=== PATIENT | male | born 1950 | race Caucasian/White ===

== ENCOUNTER 2017-06-02 16:58 | Emergency (ER) | payer SELFPAY ==
[~2017-06-02] VITALS: Ht 160 cm; Wt 88.0 kg
[2017-06-02 17:01] VITALS: Ht 160 cm; Wt 88.0 kg
== END 2017-06-02 20:03 | disposition left against medical advice (07) ==
LOC: FTE 16:58
DX: Z53.21 Procedure and treatment not carried out due to patient leaving prior to being seen by health care provider (principal)

== ENCOUNTER → 2017-06-02 | Outpatient (CLI) | payer BC ==
--- NOTE | 2017-06-02 16:38 | RADRPT ---
PROCEDURE: US Carotids. CLINICAL INDICATION: bruit , TIA TECHNIQUE: Multiple sonographic of the carotid bifurcation region and vertebral arteries were obta ined utilizing galvez scale, duplex and color-flow imaging. The images were reviewed on a PACS worksta tion. COMPARISON: No prior studies are available for comparison. FINDINGS: Evaluation of the right carotid bifurcation region reveals mild to moderate calcific atherosclerotic disease. Evaluation of the left carotid bifurcation region reveals severe calcific atherosclerotic disease. There is antegrade flow within the vertebral arteries bilaterally. RIGHT CAROTID MEASUREMENTS: Common Carotid [place]22.8 (cm/sec) Internal Carotid Artery - eicwrtlc41.5 (cm/sec) Internal Carotid Artery - mid70.1 (cm/sec) Internal Carotid Artery - lgejkx01.1 (cm/sec) Internal Carotid/Common Carotid1.18 LEFT CAROTID MEASUREMENTS: Common Carotid Llwnpt91.2 (cm/sec) Internal Carotid Artery - mifoeqri662 (cm/sec) Internal Carotid Artery - ruz297.3 (cm/sec) Internal Carotid Artery - zuvydy89.6 (cm/sec) Internal Carotid/Common Carotid8.58 RPTAT: AA IMPRESSION: High grade, greater than 70% stenosis in the left ICA - validated velocity measurements with angiogr aphic measurements, velocity criteria are extrapolated from diameter data as defined by the Society of Radiologists in Ultrasound Consensus Conference Radiology 2003; 229;340-346. This study does ind irectly reference the measurement of the distal ICA diameter as the denominator for stenosis measure ment. Normal antegrade flow in the vertebral arteries bilaterally. Further evaluation with a CT angiogram is recommended. A call report was made and a message left for Chris Davis (Kate) at 06/02/2017 4:37:54 PM. .Gabriel Spivey MD, MD Date Time Electronically viewed and signed by .Gabriel Spivey MD, MD on 06/02/2017 16:38 .S/
== END | disposition home or self-care (01) ==
LOC: U/S 15:37
PROVIDERS: ATTEND Specialist
DX: G45.9 Transient cerebral ischemic attack, unspecified (principal)
CPT/HCPCS: 93880

== ENCOUNTER → 2017-06-09 | Outpatient (CLI) | payer BC ==
[~2017-06-09] MED LIST: ASPI-535 PO; ATOR20TA38 PO; GLIM4TAB PO; IODIXANOL LOCM 100 ML BTL ONE; LOSA50TA6 PO; METF-731 PO; SOD CHLORIDE 0.9% 100 ML ONE
--- NOTE | 2017-06-09 12:06 | RADRPT ---
PROCEDURE: CTA Neck. CLINICAL INDICATION: Left internal carotid artery stenosis TECHNIQUE: CTA of the neck was obtained. Sagittal and coronal reformations and MIPs were provided. T he administered radiation dose was CTDI vol = 23.1, 22.08 mGy, total DLP = 685.22 mGy-cm. Images we re obtained prior following the intravenous contrast administration of 100 cc of Visipaque 320 contr ast. Coronal and sagittal as well as maximal intensity projection reformations were obtained. One o r more of the following dose reduction techniques were used: Automated exposure control, Adjustment of the mA and/or kV according to patient size, or Use of iterative reconstruction technique. COMPARISON: Carotid ultrasound 06/02/2017 FINDINGS: CTA neck: Aorta: There is a widely patent standard three-vessel aortic arch. With mild scattered calcific athe rosclerotic plaque, including near the origins of the left common carotid artery and left subclavian artery. Right common carotid artery: Patent without evidence of stenosis. Right internal carotid artery: There is eccentric calcific atherosclerotic plaque at the proximal right internal carotid artery wit h associated approximately 35% focal stenosis (series 2, image 134; series 601, image 48). The cervi mendel right internal carotid artery is otherwise widely patent. Right external carotid artery: Patent without evidence of stenosis. Left common carotid artery: Patent without evidence of stenosis. Left internal carotid artery: There is soft and calcific atherosclerotic plaque at the origin of the left internal carotid artery without associated significant stenosis. There is dense nearly concent jose calcific atherosclerotic plaque of the proximal left internal carotid artery, approximately 1.4 cm distal to the origin (series 602, image 66) with associated focal near complete occlusion / strin g sign (series 2, image 124). The cervical left internal carotid artery lumen is diffusely slightly small distal to the stenosis, presumably related to decreased flow. Left external carotid artery: Patent without evidence of stenosis. V1/V2/V3 vertebral arteries: There is focal calcific atherosclerotic plaque at the origin of the rig ht vertebral artery with associated mild to moderate focal origin stenosis. The right vertebral chester ry is otherwise widely patent. The left vertebral artery is widely patent, without evidence of signi ficant stenosis. Vertebral artery dominance: The vertebral arteries are essentially codominant. CT neck: There is no cervical adenopathy. Coronary artery calcifications are noted. The thyroid gland is dali sly unremarkable. There is periapical lucency of the right maxillary molar teeth with adjacent focal mucosal thickening along the inferior right maxillary sinus. There are multilevel degenerative cobos ges of the cervical and visualized upper thoracic spine. IMPRESSION: 1. Proximal left internal carotid artery high-grade stenosis/near occlusion secondary to dense nearl y concentric calcific atherosclerotic plaque. As per NASCET criteria, direct measurement of vessel d iameter was made in reference to measurement of the ipsilateral distal internal carotid artery diame ter. 2. Eccentric calcific atherosclerotic plaque at the proximal right internal carotid artery with asso ciated approximately 35% focal stenosis (series 2, image 134; series 601, image 48). The cervical ri ght internal carotid artery is otherwise widely patent. As per NASCET criteria, direct measurement o f vessel diameter was made in reference to measurement of the ipsilateral distal internal carotid ar justo diameter. 3. Mild to moderate focal right vertebral artery origin stenosis. 4. Right maxillary molar tooth periapical lucency/cyst with adjacent focal mucosal thickening along the floor of the right maxillary sinus, consistent with odontogenic right maxillary sinusitis. Recom mend dental and / or ENT consultation. RPTAT: AA Physician Brenna Date Time Electronically viewed and signed by Physician Brenna on 06/09/2017 12:06 WILLA/
== END | disposition home or self-care (01) ==
LOC: C/S 08:04
PROVIDERS: ATTEND Surgery
DX: I65.22 Occlusion and stenosis of left carotid artery (principal)
CPT/HCPCS: 70498; Q9967

== ENCOUNTER 2017-06-11 06:14 | Inpatient (IN) | payer BC ==
[2017-06-08 13:41] LABS: BASOPHIL # 0.1 10^3/ul (0.0-0.1); EOSINOPHILS # 0.1 10^3/ul (0.0-0.5); EOSINOPHILS % 0.7 % (0.0-7.0); HEMATOCRIT 42.8 % (42.0-52.0); HEMOGLOBIN 14.9 g/dl (14.0-18.0); LYMPHOCYTES # 2.6 10^3/ul (0.8-2.9); MEAN CORPUSCULAR HEMOGLOBIN 31.2 pg (29.0-33.0); MEAN CORPUSCULAR HGB CONC 34.8 g/dl (32.0-37.0); MEAN CORPUSCULAR VOLUME 89.7 fl (82.0-101.0); MEAN PLATELET VOLUME 9.2 fl (7.4-10.4); MONOCYTE # 0.6 10^3/ul (0.3-0.9); MONOCYTES % 7.9 % (0.0-11.0); NEUTROPHILS % 54.1 % (39.0-77.0); PLATELET COUNT 267 10^3/UL (140-415); RED BLOOD COUNT 4.77 10^6/ul (4.70-6.10); RED CELL DISTRIBUTION WIDTH 12.6 % (11.5-14.5); WHITE BLOOD COUNT 7.3 10^3/ul (4.8-10.8)
[2017-06-08 13:55] LABS: INR 0.92; PROTIME 12.4 Sec (12.2-14.2)
[2017-06-08 13:56] LABS: PARTIAL THROMBOPLASTIN TIME 26.3 Sec (25.0-35.0)
[2017-06-08 14:00] LABS: CALCIUM 9.7 mg/dl (8.4-10.2); CREATININE 0.74 mg/dl (0.61-1.24); POTASSIUM 4.6 mmol/L (3.5-5.1)
--- NOTE | 2017-06-08 14:13 | RADRPT ---
PROCEDURE: XR Chest 1 View. CLINICAL INDICATION: Abnormal breath sounds, preop. TECHNIQUE: AP view of the chest was obtained. COMPARISON: None. FINDINGS: The heart size is within normal limits. Calcified atherosclerosis is noted in the aorta. Subsegment al atelectasis is noted in the right lower lobe. No consolidations are identified. No pneumothorax is seen. Osseous structures are intact. IMPRESSION: Calcified atherosclerosis in the aorta. Subsegmental atelectasis in the right lower lobe. RPTAT: AA .Nirav Perdomo MD, Date Time Electronically viewed and signed by .Nirav Perdomo MD, on 06/08/2017 14:13 .P/
--- NOTE | 2017-06-10 11:11 | RADRPT ---
Vent Rate: 75 bpm RR Interval: 0 msec MN Interval: 190 msec QRS Duration: 104 msec QT Interval: 386 msec QTC Interval: 431 msec P-R-T [place]: 52 - -4 - 44 degrees Normal sinus rhythm with sinus arrhythmia Cannot rule out Anterior infarct , age undetermined Abnormal ECG Electronically Signed By: Rashad James [id number]
[~2017-06-11] VITALS: Ht 160 cm; Wt 83.5 kg
[2017-06-11] VITALS (54 sets, daily range): BP systolic 112–182; BP diastolic 62–117; PULSE 69–117; RESP 12–27; Ht 160 cm; Wt 83.5 kg
[2017-06-11] MEDS ORDERED: DESFLURANE 15 MIN ONE (07:00)
[2017-06-11] MEDS ORDERED: PROPOFOL 200 MG INJ ONE (07:00)
[2017-06-11] MEDS ORDERED: LIDOCAINE 2% (SDV) 5 ML INJ ONE (07:00)
[2017-06-11] MEDS ORDERED: ATOR20TA38 PO (07:12)
[2017-06-11] MEDS ORDERED: GLIM4TAB PO (07:12)
[2017-06-11] MEDS ORDERED: ASPI-535 PO (07:12)
[2017-06-11] MEDS ORDERED: LOSA50TA6 PO (07:12)
[2017-06-11] MEDS ORDERED: METF-731 PO (07:12)
--- NOTE | 2017-06-11 07:13 | HPN ---
Date/Time of Note Date/Time of Note DATE: 06/11/17 TIME: 07:13 Interval H&P Admission Note Pt. seen H&P reviewed: No system changes ZULEMA GO MD Jun 11, 2017 07:13
--- NOTE | 2017-06-11 07:14 | SIPON ---
Date/Time of Note Date/Time of Note DATE: 06/11/17 TIME: 07:13 Operative Report Preoperative Diagnosis L carotid stenosis, TIA Postoperative Diagnosis same Operation/Procedure Performed L carotid endarterectomy, eversion Surgeon DONAVAN Anesthesia Type: general Estimated Blood Loss: 10 - 50 ml's Transfusion Required: no Specimens carotid plaque Grafts/Implants: none Complications: no ZULEMA GO MD Jun 11, 2017 07:14
[2017-06-11] MEDS ORDERED: GELATIN SIZE 100 SPONGE ONE (07:26)
[2017-06-11] MEDS ORDERED: LIDOCAINE 1% (MPF) 30 ML INJ ONE ×3 (07:26→08:54)
[2017-06-11] MEDS ORDERED: HEPARIN 1000 UNITS/ML 10 ML INJ ONE ×2 (07:27→08:53)
[2017-06-11] MEDS ORDERED: THROMBIN 5000 UNIT VIAL ONE (07:27)
[2017-06-11] MEDS ORDERED: BUPIVACAINE 0.5%/EPI (SDV) 10 ML INJ ONE (07:27)
[2017-06-11] MEDS ORDERED: THROMBIN 5000 UNIT VIAL TOP ONE (07:45)
[2017-06-11] MEDS ORDERED: LIDOCAINE 1% (MPF) 30 ML INJ INJ ONE (07:45)
[2017-06-11] MEDS ORDERED: GELATIN SIZE 100 SPONGE TOP ONE (07:45)
[2017-06-11] MEDS ORDERED: HEPARIN 1000 UNITS/ML 10 ML INJ IRR ONE (07:45)
[2017-06-11] MEDS ORDERED: MIDAZOLAM 1 MG/ML 2 ML INJ ONE (08:04)
[2017-06-11] MEDS ORDERED: CEFAZOLIN 1 GM INJ ONE (08:04)
[2017-06-11] MEDS ORDERED: FENTAnyl 50 MCG/ML VIAL ONE ×3 (08:04→09:06)
[2017-06-11] MEDS ORDERED: ONDANSETRON 4 MG INJ ONE (08:04)
[2017-06-11] MEDS ORDERED: GLYCOPYRROLATE 0.4 MG INJ ONE (08:04)
[2017-06-11] MEDS ORDERED: ROCURONIUM 50 MG INJ ONE (08:04)
[2017-06-11] MEDS ORDERED: NEOSTIGMINE 3 MG/3 ML SYRINGE ONE (08:04)
[2017-06-11] MEDS ORDERED: PROPOFOL 20 ML ONE (08:04)
[2017-06-11] MEDS ORDERED: DEXAMETHASONE 4 MG/ML 1 ML INJ ONE (08:04)
[2017-06-11] MEDS ORDERED: MIDAZOLAM 1 MG/ML 2 ML INJ IV PRN (09:30)
[2017-06-11] MEDS ORDERED: MEPERIDINE 25 MG INJ IV PRN (09:30)
[2017-06-11] MEDS ORDERED: TRIMETHOBENZAMIDE 100 MG/ML VIAL IM PRN (09:30)
[2017-06-11] MEDS ORDERED: FENTAnyl 50 MCG/ML VIAL IV PRN ×3 (09:30)
[2017-06-11] MEDS ORDERED: DIPHENHYDRAMINE 50 MG INJ IV PRN (09:30)
[2017-06-11] MEDS ORDERED: HYDROmorphONE (0.2 MG/ML) 10ML SYG IV PRN ×3 (09:30)
[2017-06-11] MEDS ORDERED: ONDANSETRON 4 MG INJ IV PRN ×2 (09:30→10:00)
[2017-06-11] MEDS ORDERED: OXYCODONE/ACETAMINOPHEN (5/325) TAB PO PRN ×2 (09:30)
[2017-06-11] MEDS ORDERED: LABETALOL HCL 20MG INJ IV PRN (09:30)
[2017-06-11] MEDS ORDERED: EPHEDrine SULFATE 50 MG/5 ML SYG IV PRN (09:30)
[2017-06-11] MEDS ORDERED: ALBUTEROL 0.083% (NEB) 2.5 MG/3 ML AMP HHN PRN (09:30)
[2017-06-11] MEDS ORDERED: hydrALAzine 20 MG INJ IV PRN (09:30)
[2017-06-11] MEDS ORDERED: IPRATROPIUM (NEB) 0.5 MG/2.5 ML AMP HHN PRN (09:30)
[2017-06-11] MEDS ORDERED: IBUPROFEN 600 MG TAB PO PRN (10:00)
[2017-06-11] MEDS ORDERED: HYDROCODONE/APAP (5/325) TAB PO PRN (10:00)
[2017-06-11] MEDS ORDERED: ACETAMINOPHEN 325 MG TAB PO PRN (10:00)
[2017-06-11] MEDS ORDERED: DEXTROSE 50% 50 ML SYRINGE IV PRN ×2 (10:30)
[2017-06-11] MEDS ORDERED: GLUCOSE GEL 15 GRAM TUBE BUCCAL PRN (10:30)
[2017-06-11] MEDS ORDERED: GLUCOSE GEL 15 GRAM TUBE PO PRN ×2 (10:30)
[2017-06-11] MEDS ORDERED: GLUCAGON 1 MG INJ IM PRN (10:30)
[2017-06-11] MEDS ORDERED: niCARdipine 50 MG in SOD CHLORIDE 0.9% 480 ML IV SCH (10:30)
[2017-06-11] MEDS ORDERED: niCARdipine-NS 0.1MG/ML DRIP 200 ML ONE (10:54)
[2017-06-11] MEDS: D5W-0.45 NACL + KCL 20 MEQ 1,000 ML IV SCH ×2 (11:13→11:19)
[2017-06-11] MEDS ORDERED: HYDROmorphONE 1 MG/ML SYG ONE (11:16)
[2017-06-11] MEDS ORDERED: Discontinue current oral sulfonylureas (glyburide, glipizide, and/or glimepiride) prior to XX ONE (11:30)
[2017-06-11] MEDS ORDERED: HYPOGLYCEMIA PROTOCOL when Glucose is <70 mg/dL or symptomatic <90 mg/dL. XX ONE (11:30)
[2017-06-11] MEDS ORDERED: HYDROmorphONE 1 MG/ML SYG IV PRN (11:30)
--- NOTE | 2017-06-11 12:05 | OPR ---
DATE OF OPERATION: 06/11/2017 PREOPERATIVE DIAGNOSIS: High-grade left carotid stenosis with recent transient ischemic attack. POSTOPERATIVE DIAGNOSIS: High-grade left carotid stenosis with recent transient ischemic attack. OPERATION PERFORMED: Left carotid endarterectomy. SURGEON: Dr. Mikhail Hunter. ANESTHESIA: General endotracheal anesthesia. ESTIMATED BLOOD LOSS: Less than 50 cc. COMPLICATIONS: There were no intraprocedural complications. INDICATIONS: This is a 66-year-old diabetic, hypertensive gentleman with a recent TIA. Had an episode of amaurosis about 2 weeks ago. He had a carotid ultrasound, and then CT angiogram, which showed high-grade, greater than 75 percent, stenosis in the in the left internal carotid artery. I brought him in today for left carotid endarterectomy. OPERATIVE PROCEDURE: The patient was brought to the operating room, placed on table in supine position. Left neck was prepped and draped in the usual sterile fashion after induction of general endotracheal anesthesia. I began by making an incision along the anterior border of the left sternocleidomastoid muscle, extending up to the area over the mandible. I divided the subcutaneous tissue and the platysma muscle using electrocautery. Retracted the sternocleidomastoid muscle laterally and dissected down along the anterior border of the sternocleidomastoid until I identified the internal jugular vein. I carefully dissected out the common facial vein. I ligated it with 3-0 silk ties and divided it. This exposed the carotid bifurcation. I then carefully dissected out the common external and internal carotid arteries, as well as parathyroid artery. They were each controlled. The bifurcation was in the mid neck but the lesion was quite high and so it was all the way up into the upper neck. In the upper neck area, the artery looked normal, when I could feel that the endpoint was reachable. Once I had everything well exposed, I gave the patient 3000 units of heparin intravenously. I then clamped the external carotid, placed a 20-gauge needle into the common carotid. We measured a stump pressure. The pressure in the common carotid at this point, was 148/54 with a mean of 84. I clamped the common carotid proximal to the needle insertion site and the pressure dropped to 48/44 with a mean of 46. This was adequate to proceed without shunting. So I clamped the internal carotid very distally, the common carotid proximally. I then transected the internal carotid from the bulb obliquely using an 11 blade. I then performed an eversion endarterectomy of the internal carotid. It was a very long lesion. It was about 3 cm long and I got a very nice endpoint distally. I back bled. There is good backbleeding from the internal. I flushed. I then re-anastomosed the internal carotid to the bulb using 6-0 Prolene suture in a running standard vascular surgical fashion. Just prior to completing the anastomosis, I back bled each of the common internal and external carotids, re-clamped, copiously irrigated with heparinized saline, and completed the anastomosis. I then unclamped the external, then the common, and lastly the internal carotid. I listened to each of the vessels with the Doppler. There was a normal-sounding signal with each of them, the low resistance signal in the internal and high resistance in the common and external. There was good hemostasis. I then closed the skin incision in 2 layers using an inner layer of 3-0 Vicryl and an outer layer 4-0 Monocryl subcuticular suture. Sterile dressing was applied. The patient was extubated in the operating room. He was moving all 4 extremities. Tongue was midline. His speech is fluent. He was then transferred to the recovery room in stable condition. He tolerated the procedure well without any complications. Dictated By: Mikhail Hunter MD /venkat/nena /Document#: [id number] ; Dr. Chris Mora
[2017-06-11] MEDS: INSULIN ASPART [NOVOLOG] 3 ML PEN SC SCH ×3 (12:28→21:33)
--- NOTE | 2017-06-11 13:11 | CONS ---
DATE OF ADMISSION: 06/11/2017 DATE OF CONSULTATION: 06/11/2017 CHIEF COMPLAINT: This is a 66-year-old male, status post left carotid endarterectomy earlier today. HISTORY OF PRESENT ILLNESS: A 66-year-old male with past medical history of essential hypertension, recent TIA, high cholesterol, type 2 diabetes, coronary artery disease, who was sent in for evaluation of left carotid stenosis. Apparently, the patient had suffered an episode of amaurosis fugax in the left eye about 2 weeks ago, was diagnosed with TIA, and he was seen by Vascular Surgery today because of 70 percent stenosis of left proximal ICA. Patient is a former smoker. He underwent left carotid endarterectomy earlier today, presently is recovering in the intensive care unit. Denies any chest pain, no shortness of breath. No fevers or chills, nausea, vomiting, diarrhea, constipation, upper or lower GI bleeding, headaches, or dizziness. PAST MEDICAL HISTORY: As above. ALLERGIES: NO KNOWN DRUG ALLERGIES. HOME MEDICATIONS: Based on documentation: 1. Aspirin 81 mg daily. 2. Glimepiride 4 mg daily. 3. Lantus unknown dose. 4. Losartan 50 mg daily. 5. Metformin 1000 mg b.i.d. PAST SURGICAL HISTORY: He had left finger surgery in the past. FAMILY HISTORY: Negative. SOCIAL HISTORY: Former smoker, quit 30 years ago. He is a retired sign writer letterer or painter. PHYSICAL EXAMINATION: VITAL SIGNS: Today, T-max 98.5, pulse 78, respirations 18, blood pressure 133/76, saturation 98 percent on 2L nasal cannula. GENERAL APPEARANCE: Patient lying in bed, answers appropriately. No acute distress. HEENT: Pupils equal, round, react to light. Extraocular muscles intact. NECK: Supple. No thyromegaly. LUNGS: Clear auscultation bilaterally. CARDIAC: S1, S2 heard. No murmurs, rubs, gallops. ABDOMEN: Soft, nontender, nondistended. Normal bowel sounds. No rebound or guarding. MUSCULOSKELETAL: No lower extremity edema bilaterally. NEUROLOGIC: No focal deficits. LABORATORY: There is no new CBC or basic metabolic panel from this morning. The fingerstick is 174. IMPRESSION AND PLAN: A 66-year-old male, status post carotid endarterectomy after recent transient ischemic attack (TIA) 2 weeks ago. Prior history of diabetes, high cholesterol, hypertension, coronary artery disease. 1. Status post left endarterectomy, can continue medical management per primary team, which is vascular surgery team, including current blood pressure medicines, aspirin, statin, pain control medications as well. Monitor vital signs carefully. 2. Type 2 diabetes. Again, continue sliding scale insulin per primary team. 3. Essential hypertension. Again, continue current medications, including Cozaar, and monitor blood pressure. 4. Recent transient ischemic attack (TIA). Again, continue to monitor for now. 5. History of coronary artery disease. Again, continue aspirin and cardiac medications. We will continue to follow along with you. TIME SPENT: Critical care time spent on consult today, 40 minutes. Dictated By: Selvin Najera MD /venkat/andrea /Document#: [id number]
[2017-06-11] MEDS ORDERED: GLIMEPIRIDE 4 MG TAB PO SCH (17:35)
[2017-06-11] MEDS ORDERED: CALCIUM CARBONATE 500 MG CHEW TAB PO PRN (19:30)
[2017-06-11] MEDS ORDERED: ATORVASTATIN 20 MG TAB PO SCH (21:00)
[2017-06-11] MEDS ORDERED: INSULIN GLARGINE [LANtus] 3 ML PEN SC SCH (21:30)
[2017-06-12] VITALS (11 sets, daily range): BP systolic 118–156; BP diastolic 58–90; PULSE 75–114; RESP 10–21
[2017-06-12] MEDS: D5W-0.45 NACL + KCL 20 MEQ 1,000 ML IV SCH (01:00)
[2017-06-12] MEDS ORDERED: INSULIN ASPART [NOVOLOG] 3 ML PEN SC ONE (02:00)
[2017-06-12] MEDS ORDERED: ACCU-CHEK XX SCH ×3 (02:00)
[2017-06-12] MEDS ORDERED: INSULIN GLARGINE [LANtus] 3 ML PEN SC ONE (02:00)
[2017-06-12 05:10] LABS: BASOPHILS % 0.2 % (0.0-2.0); HEMATOCRIT 38.2 % (42.0-52.0); HEMOGLOBIN 13.2 g/dl (14.0-18.0); LYMPHOCYTES # 1.6 10^3/ul (0.8-2.9); LYMPHOCYTES % 14.1 % (15.0-51.0); MEAN CORPUSCULAR HEMOGLOBIN 31.1 pg (29.0-33.0); MEAN CORPUSCULAR HGB CONC 34.6 g/dl (32.0-37.0); MEAN CORPUSCULAR VOLUME 89.9 fl (82.0-101.0); MEAN PLATELET VOLUME 9.8 fl (7.4-10.4); MONOCYTE # 0.9 10^3/ul (0.3-0.9); MONOCYTES % 8.5 % (0.0-11.0); NEUTROPHIL # 8.6 10^3/ul (1.6-7.5); NEUTROPHILS % 76.9 % (39.0-77.0); PLATELET COUNT 254 10^3/UL (140-415); RED BLOOD COUNT 4.25 10^6/ul (4.70-6.10); RED CELL DISTRIBUTION WIDTH 12.6 % (11.5-14.5); WHITE BLOOD COUNT 11.1 10^3/ul (4.8-10.8)
[2017-06-12 06:05] LABS: CALCIUM 9.2 mg/dl (8.4-10.2); CREATININE 0.64 mg/dl (0.61-1.24); POTASSIUM 4.3 mmol/L (3.5-5.1)
[2017-06-12] MEDS ORDERED: INSULIN ASPART [NOVOLOG] 3 ML PEN SC SCH (07:35)
[2017-06-12] MEDS: INSULIN ASPART [NOVOLOG] 3 ML PEN SC SCH (07:56)
--- NOTE | 2017-06-12 08:38 | PN ---
Date/Time of Note Date/Time of Note DATE: 06/12/17 TIME: 08:36 Assessment/Plan Lines/Catheters IV Catheter Type (from Nrsg): A Line Robbins in Place (from Nrsg): No Assessment/Plan Assessment/Plan Doing well s/p L CEA Discharge home if OK with Dr. Najera Continue ASA / Lipitor f/u with me in the office in 2 weeks Subjective 24 Hr Interval Summary No c/o. Speech is fluent, no swallowing difficulty. Exam/Review of Systems Vital Signs Vitals Vital Signs Date Time Temp Pulse Resp B/P Pulse Ox O2 Delivery O2 Flow Rate FiO2 06/12/17 06:00 101 18 156/68 98 Room Air 06/12/17 04:00 98.0 06/11/17 18:00 2.0 Intake and Output 06/11/17 06/11/17 06/12/17 15:00 23:00 07:00 Intake Total 1680 ml 1670 ml 700 ml Output Total 115 ml 2700 ml 2350 ml Balance 1565 ml -1030 ml -1650 ml Exam Free Text/Dictation L neck is flat, incision is clean and dry Tongue midline 5/5 motor and sensory function B U/LE's Results Result Diagram: 06/12/17 04306/12/17 043 ZULEMA GO MD Jun 12, 2017 08:38
[2017-06-12] MEDS ORDERED: LOSARTAN 50 MG TAB PO SCH (09:00)
[2017-06-12] MEDS ORDERED: ASPIRIN (EC) 81 MG TAB PO SCH (09:00)
[2017-06-12] MEDS ORDERED: INSULIN GLARGINE [LANtus] 3 ML PEN SC SCH (20:00)
== END 2017-06-12 10:47 | disposition home or self-care (01) | DRG 38 ==
LOC: REC 06:14 → ICU 11:00 → EDSTATUS 15:35
PROVIDERS: ADMIT Hospitalist; ATTEND Hospitalist
PROC: 03CL0ZZ Extirpation of Matter from Left Internal Carotid Artery, Open Approach (ICD-10-PCS; principal; 2017-06-11 08:00)
DX: I65.22 Occlusion and stenosis of left carotid artery (principal); H53.122 Transient visual loss, left eye; I10 Essential (primary) hypertension; E11.9 Type 2 diabetes mellitus without complications; E78.5 Hyperlipidemia, unspecified; I25.10 Atherosclerotic heart disease of native coronary artery without angina pectoris; Z79.4 Long term (current) use of insulin; Z79.82 Long term (current) use of aspirin; Z87.891 Personal history of nicotine dependence
CPT/HCPCS: 71010; 80048; 82962; 85025; 85610; 85730; 86850; 86900; 86901; 87081; 93005; J0360; J0690; J1100; J1170; J1644; J1815; J2250; J2405; J2710; J3010; J3480; J7040

== ENCOUNTER 2017-09-02 06:27 | Day surgery (SDC) | payer BC ==
[~2017-09-02] VITALS: Ht 160 cm; Wt 81.1 kg
[~2017-09-02 06:27] MED LIST changes: -IODIXANOL LOCM 100 ML BTL ONE; -SOD CHLORIDE 0.9% 100 ML ONE
[2017-09-02] MEDS ORDERED: LANTUS (07:31)
[2017-09-02] MEDS ORDERED: TRULICITY (07:31)
[2017-09-02] MEDS ORDERED: [UNRECOGNIZED DRUG - OTHER] (07:31)
[2017-09-02 07:59] VITALS: BP 134/70; PULSE 71; RESP 16
--- NOTE | 2017-09-02 09:09 | OPPN ---
Date/Time of Note Date/Time of Note DATE: 09/02/17 TIME: 09:08 Proc Note GI Procedure Date 09/02/17 Pre-procedure Diagnosis Screening colonoscopy Post-procedure Diagnosis 1 colon polyp removed from transverse colon by cold snare technique 7 mm in diameter Diverticulosis right side of the colon Internal hemorrhoids Procedure Performed: Colonoscopy Surgeon see signature line Ecclesiastical Worker none Anesthesia Type: moderate sedation Tourniquet Time none EBL none Transfusion required none Biopsy 1: None Polyp 1: Removed by cold snare technique Grafts/Implants none Tubes/Drains none Complication(s) none Disposition: PACU Procedure Description Report dictated SIGRID KING MD Sep 02, 2017 09:09
[2017-09-02] MEDS ORDERED: MIDAZOLAM 1 MG/ML 2 ML INJ ONE ×2 (09:14)
[2017-09-02] MEDS ORDERED: FENTAnyl 50 MCG/ML VIAL ONE (09:15)
--- NOTE | 2017-09-02 13:49 | GILP ---
DATE OF PROCEDURE: PROCEDURE PERFORMED: Colonoscopy with polypectomy. INDICATION: A 67-year-old male undergoing this procedure for colon cancer screening. The risks of the procedure, related and unrelated complications, anesthetic sedative risks, alternatives discusse d and informed consent was obtained. The patient opted for moderate sedation and did not want anest hesia. DESCRIPTION OF PROCEDURE: The patient was brought to the GI lab, sedated with Versed 3.5 mg and fen tanyl 50 mg. After optimal sedation, scope was passed with much ease into rectum, advanced slowly t hrough sigmoid, descending, transverse colon all the way into the cecum. Appendiceal orifice identi fied. IC valve identified. There was opaque colored stool in the right side of the colon, removed it as much as possible, precluding the visibility by 5-7%. While coming out, mucosa thoroughly insp ected. There was a polyp which was removed. While going in, it was a small polyp, 7 mm in diameter , successfully removed by cold snare technique. The mucosa again examined while coming out and no b leeding was identified. The scope was then gradually withdrawn. Retroversion done, internal hemorr hoids identified. Scope was straightened out and removed with good patient tolerance. IMPRESSION: 1. Internal hemorrhoids, moderate size. 2. Diverticulosis, mainly on the right side of the colon. 3. The small polyp, 7 mm in diameter, successfully removed by cold snare technique. 4. Clarity was good and preparation also was good. PLAN: Stay on high fiber diet. Based on the histopathology of the polyp, we will decide regarding future colonoscopy. If it is nonhyperplastic, definitely would need colonoscopy in 5 years. Dictated By: SIGRID YUSUF/CECELIA Conf#: [id number] DID#: [id number] CC: GRUPO MCDANIEL MD;*EndCC*
== END 2017-09-02 19:15 | disposition home or self-care (01) ==
LOC: GIL 06:27
PROVIDERS: ATTEND Internal Medicine Gastroenterology
DX: Z12.11 Encounter for screening for malignant neoplasm of colon (principal); K64.8 Other hemorrhoids; D12.6 Benign neoplasm of colon, unspecified; E11.9 Type 2 diabetes mellitus without complications; E78.5 Hyperlipidemia, unspecified; I10 Essential (primary) hypertension
CPT/HCPCS: 45385; 82962; J2250; J3010

== ENCOUNTER → 2018-03-07 | Outpatient (CLI) | END | disposition home or self-care (01) ==

== ENCOUNTER → 2018-09-30 | Outpatient (CLI) | payer BC ==
[~2018-09-30] MED LIST changes: +LANTUS; -LOSA50TA6 PO; +LOSA50TA7 PO; +TRULICITY; +[UNRECOGNIZED DRUG - OTHER]
== END | disposition home or self-care (01) ==
LOC: U/S 09:44
PROVIDERS: ATTEND Surgery
DX: I65.29 Occlusion and stenosis of unspecified carotid artery (principal)
CPT/HCPCS: 93880

== ENCOUNTER → 2018-11-17 | Outpatient (CLI) | payer BC ==
[~2018-11-17] MED LIST changes: +LOSA50TA14 PO; -LOSA50TA7 PO
== END | disposition home or self-care (01) ==
LOC: U/S 08:54
PROVIDERS: ATTEND Internal Medicine
DX: R09.89 Other specified symptoms and signs involving the circulatory and respiratory systems (principal)
CPT/HCPCS: 76700

== ENCOUNTER → 2019-04-26 | Outpatient (CLI) | payer BC | END | disposition home or self-care (01) | LOC: VAS 08:47 | PROVIDERS: ATTEND Surgery | DX: I65.22 Occlusion and stenosis of left carotid artery (principal) | CPT/HCPCS: 93880 ==